=== PATIENT | male | born 1970 | race Hispanic/Latino ===

== ENCOUNTER 2018-04-01 07:07 | Emergency (ER) | payer BC, OTHER ==
[~2018-04-01 07:07] MED LIST: AEC81 PO; CLOP75TA32 PO; LISI2.5T2 PO; METO50TA18 PO; SIMV20TA6 PO
[2018-04-01] MEDS ORDERED: KETOROLAC TROMETHAMINE 60 MG/2 ML VIAL ONE (07:29)
[2018-04-01 07:52] LABS: CREATININE 1.4 mg/dL (0.5-1.5); POTASSIUM 4.4 mmol/L (3.5-5.1)
== END 2018-04-01 07:43 | disposition home or self-care (01) ==
LOC: EDH 07:07
DX: M10.9 Gout, unspecified (principal); I25.10 Atherosclerotic heart disease of native coronary artery without angina pectoris; E78.5 Hyperlipidemia, unspecified; I10 Essential (primary) hypertension; Z87.891 Personal history of nicotine dependence; I25.2 Old myocardial infarction
CPT/HCPCS: 36415; 80048; 96372; 99284; J1885

== ENCOUNTER 2018-10-16 08:38 | Emergency (ER) | payer BC | END 2018-10-16 09:37 | disposition home or self-care (01) | LOC: EDH 08:38 | DX: M10.061 Idiopathic gout, right knee (principal); I25.10 Atherosclerotic heart disease of native coronary artery without angina pectoris; E78.5 Hyperlipidemia, unspecified; I10 Essential (primary) hypertension; I25.2 Old myocardial infarction ==

== ENCOUNTER 2020-06-06 09:47 | Emergency (ER) | payer BC ==
[~2020-06-06 09:47] MED LIST changes: +SIMV-43 PO; -SIMV20TA6 PO
[2020-06-06] MEDS ORDERED: DEXAMETHASONE 4 MG TAB ONE (10:16)
[2020-06-06] MEDS ORDERED: KETOROLAC TROMETHAMINE 60 MG/2 ML VIAL ONE (10:16)
== END 2020-06-06 10:35 | disposition home or self-care (01) ==
LOC: EDH 09:47
DX: M10.072 Idiopathic gout, left ankle and foot (principal); E78.5 Hyperlipidemia, unspecified; I10 Essential (primary) hypertension; I25.10 Atherosclerotic heart disease of native coronary artery without angina pectoris
CPT/HCPCS: 96372; 99284; J1885; J8540

== ENCOUNTER 2022-03-15 09:09 | Emergency (ER) | payer BC ==
[~2022-03-15] VITALS: Ht 162.6 cm; Wt 87.1 kg
[~2022-03-15 09:09] MED LIST changes: +LISI2.5T13 PO; -LISI2.5T2 PO
[2022-03-15] MEDS ORDERED: COLCHICINE 0.6 MG TABLET PO STA (09:32)
[2022-03-15] MEDS ORDERED: COLC0.6C3 PO (09:40)
[2022-03-15] MEDS ORDERED: INDO20CA4 PO (09:40)
[2022-03-15] MEDS ORDERED: ALLO300T2 PO (09:40)
[2022-03-15] MEDS ORDERED: KETOROLAC 60 MG VIAL (30MG/ML) IM ONE (10:00)
[2022-03-15] MEDS ORDERED: COLCHICINE 0.6 MG TABLET PO SCH (10:00)
[2022-03-15] MEDS ORDERED: KETOROLAC 30MG VIAL (30MG/ML) IM ONE (10:00)
[2022-03-15 10:13] VITALS: BP 138/79
== END 2022-03-15 10:45 | disposition home or self-care (01) ==
LOC: EDH 09:09
DX: M10.061 Idiopathic gout, right knee (principal); I10 Essential (primary) hypertension; E78.5 Hyperlipidemia, unspecified; Z79.1 Long term (current) use of non-steroidal anti-inflammatories (NSAID); Z79.82 Long term (current) use of aspirin; Z79.899 Other long term (current) drug therapy
CPT/HCPCS: 99284; 73562; 96372; J1885

== ENCOUNTER → 2022-03-28 | Outpatient (CLI) | payer BC ==
[~2022-03-28] MED LIST changes: +ALLO300T2 PO; +COLC0.6C3 PO; +INDO20CA4 PO
[2022-03-28 12:11] LABS: BASOPHILS % (AUTO) 0.4 % (0.0-5.0); EOSINOPHILS % (AUTO) 1.9 % (0.0-8.0); LYMPHOCYTES % (AUTO) 19.5 % (21.0-51.0); MEAN CORPUSCULAR HEMOGLOBIN 30.1 pg (27.0-33.0); MEAN CORPUSCULAR VOLUME 91.3 fL (79-99); MONOCYTES % (AUTO) 6.2 % (3.0-13.0); NEUTROPHILS % (AUTO) 71.8 % (40.0-77.0); PLATELET COUNT (AUTO) 304 K/uL (130-400); RED BLOOD CELL COUNT(AUTO) 4.71 MIL/uL (4.50-6.20); RED CELL DISTRIBUTION WIDTH 12.6 % (11.0-15.5)
[2022-03-28 12:24] LABS: ALBUMIN 3.9 g/dL (3.5-5.0); CREATININE 1.2 mg/dL (0.5-1.5); POTASSIUM 4.2 mmol/L (3.5-5.1); TOTAL PROTEIN, SERUM 7.8 g/dL (6.0-8.3)
== END | disposition home or self-care (01) ==
LOC: LAB 08:06
PROVIDERS: ATTEND Nurse Practitioner Acute Care
DX: I10 Essential (primary) hypertension (principal); E78.5 Hyperlipidemia, unspecified
CPT/HCPCS: 36415; 80053; 80061; 85025